=== PATIENT | female | born 1990 | race Caucasian/White ===

== ENCOUNTER 2019-02-02 21:42 | Outpatient (CLI) | payer OTHER ==
--- NOTE | 2019-02-02 23:22 | Ultrasound Report ---
Reason: SHORT CERVIX IN Procedure Date: 02/02/2019 Accession Number: [id number] / [id number] Procedure: US - OB Transvaginal CPT Code: FULL RESULT: EXAM: FOLLOW-UP OBSTETRICAL ULTRASOUND. EXAM DATE: 02/02/2019 10:29 PM. CLINICAL HISTORY: Short cervix in . COMPARISON: None. TECHNIQUE: Real-time sonographic evaluation of the fetus performed by the seed buyer. Additional transvaginal imaging to more accurately evaluate cervical length/placental position/etc. Multiple outside dealer sales representative static images were saved for review. DATING: Established EGA 22 weeks 1 day with SILVINA 06/07/2019 based on reported dates. GENERAL EVALUATION White . Cardiac activity: 142 bpm. Presentation: Variable. Placenta: Posterior position. Amniotic fluid: Normal. DANIELA 18.3 cm. MVP 5.5 cm. MATERNAL STRUCTURES The cervix is closed measuring 2.6-2.8 cm in length. IMPRESSION: 1. The cervix is closed measuring 2.6-2.8 cm in length. 2. Single, 22 week 1 day fetus in variable position. 3. heart rate 142 beats per minute. 4. DANIELA 18.3 cm. RADIA The call report notification system was initiated by Dr. Prince Oshea at 11:21 PM on 02/02/2019. The above call report findings were discussed with Dr. Guevara Florez by Dr. Prince Oshea at 11:41 PM on 02/02/2019.
== END 2019-02-02 21:43 | disposition home or self-care (01) ==
LOC: DI 21:42
PROVIDERS: ATTEND Obstetrics & Gynecology
DX: O26.879 Cervical shortening, unspecified trimester (principal); Z3A.22 22 weeks gestation of pregnancy
CPT/HCPCS: 76817

== ENCOUNTER 2019-02-16 12:54 | Outpatient (CLI) | payer OTHER ==
--- NOTE | 2019-02-16 16:09 | Ultrasound Report ---
Reason: SUPERVISION OF WITH HISTORY OF PRE TERM Procedure Date: 02/16/2019 Accession Number: [id number] / [id number] Procedure: US - OB Transvaginal CPT Code: FULL RESULT: EXAM: LIMITED OBSTETRICAL ULTRASOUND EXAM DATE: 02/16/2019 01:42 PM. CLINICAL HISTORY: SUPERVISION OF WITH HISTORY OF PRE TERM. COMPARISON: OB TRANSVAGINAL 02/02/2019 9:50 PM. TECHNIQUE: Real-time sonographic evaluation of the fetus performed by the elementary school teacher's aide. Multiple advertising sales representative static images were saved for review. Additional transvaginal imaging to more accurately evaluate cervical length/placental position/etc. DATING: Established EGA 24 weeks 1 day with SILVINA 06/07/2019. GENERAL EVALUATION White . Cardiac activity: 136 bpm. movement: Visualized. Presentation: Breech Placenta: Posterior position. Amniotic fluid: Normal. DANIELA 15.2 cm. MVP 4.6 cm. MATERNAL STRUCTURES The transvaginal maternal cervix is long and closed, 3.9 cm. IMPRESSION: 1. White live intrauterine with gestational age 24 weeks 1 day based on 06/07/2019. 2. Normal appearance of the closed cervix as described above. RADIA
== END 2019-02-16 12:55 | disposition home or self-care (01) ==
LOC: DI 12:54
PROVIDERS: ATTEND Obstetrics & Gynecology
DX: O09.212 Supervision of pregnancy with history of pre-term labor, second trimester (principal); O26.872 Cervical shortening, second trimester; Z3A.24 24 weeks gestation of pregnancy
CPT/HCPCS: 76817

== ENCOUNTER 2019-03-11 09:15 | Outpatient (CLI) | payer OTHER ==
--- NOTE | 2019-03-13 15:50 | Ultrasound Report ---
Reason: ALPHA THALASSEMIA,SUPERVISION OF WITH HI Procedure Date: 03/11/2019 Accession Number: [id number] / [id number] Procedure: US - OB F/U or Repeat CPT Code: FULL RESULT: EXAM: FOLLOW-UP OBSTETRICAL ULTRASOUND EXAM DATE: 03/11/2019 09:24 AM. CLINICAL HISTORY: ALPHA THALASSEMIA,SUPERVISION OF WITH HI. COMPARISON: OB TRANSVAGINAL 02/16/2019 1:41 PM. TECHNIQUE: Real-time sonographic evaluation of the fetus performed by the petroleum geologist. Additional transvaginal imaging to more accurately evaluate cervical length/placental position/etc. Multiple construction representative static images were saved for review. DATING: Established EGA 27 weeks 3 days with SILVINA 06/07/2019 based on provided information/physician. EGA 27 weeks 0 days with SILVINA 06/10/2019 based on the current ultrasound. GENERAL EVALUATION White . Cardiac activity: 145 bpm. movement: Visualized. Presentation: Cephalic. Placenta: Posterior, fundal position. Amniotic fluid: Normal. DANIELA 15.5 cm. MVP 4.3 cm. BIOMETRY Bi-Parietal Diameter (BPD): 6.6 cm, 26 weeks 5 days Head Circumference (HC): 24.6 cm, 26 weeks 5 days, 6.9 percentile Abdominal Circumference (AC): 22.7 cm, 27 weeks 1 day Femur Length (FL): 5.1 cm, 27 weeks 2 days Estimated Weight: 1025 152 g, 25.1 percentile for 27 weeks 3 days. ANATOMY Not evaluated MATERNAL STRUCTURES Cervix is closed measuring 3.4 cm. IMPRESSION: 1. White live intrauterine with gestational age 27 weeks 3 days based on physician provided. 2. Estimated weight is within expected limits for assigned dating. CHERYL
== END 2019-03-11 09:16 | disposition home or self-care (01) ==
LOC: DI 09:15
PROVIDERS: ATTEND Obstetrics & Gynecology
DX: O09.212 Supervision of pregnancy with history of pre-term labor, second trimester (principal); O99.012 Anemia complicating pregnancy, second trimester; D56.0 Alpha thalassemia; O26.872 Cervical shortening, second trimester; Z3A.27 27 weeks gestation of pregnancy
CPT/HCPCS: 76816; 76817

== ENCOUNTER 2019-04-05 21:17 | Outpatient (CLI) | payer OTHER ==
[2019-04-05 22:00] VITALS: BP 105/66
--- NOTE | 2019-04-06 07:14 | PROVIDER PROGRESS NOTE ---
- HPI Chief Complaint: Other (Back pain) Current : Current EDU 06/07/19 Gestation 31 Weeks and 0 Days 3 Para 2 Vital Signs Temperature 37.2 C 04/05/19 21:37 Heart Rate 85 04/05/19 21:37 Respiratory Rate 18 04/05/19 21:37 Blood Pressure 105/66 04/05/19 21:37 O2 Saturation 85 L 04/05/19 21:37 Temperature 37.2 C 04/05/19 21:37 Heart Rate 85 04/05/19 21:37 Respiratory Rate 18 04/05/19 21:37 Blood Pressure 105/66 04/05/19 21:37 O2 Saturation 85 L 04/05/19 21:37 The patient came in last night complaining of low back pain. She thought she might be having some contractions. She did have a previous delivery at 36 weeks. The patient is on weekly Rima injections. She recently had intercourse earlier today.She denies any isaías bleeding or fluid. She did have a pinkish discharge after intercourse today. - Procedures Findings: The patient was monitored. There was a category 1 EFM noted. There was good accelerations. No contractions were appreciated nursing exam revealed no change in her cervix since previous exams. - Plan Plan: 1. Intrauterine at 31 weeks gestation 2. related musculoskeletal discomfort. Plan: The patient was reassured. She will follow-up with her regular clinic visit. She knows to return to OB if her symptoms worsen or signs of labor ensue. Nursing also discussed the changes that can happen with intercourse during and the reaction of the semen to contractions in the pinkish discharge she had after intercourse.The patient was discharged home.
== END 2019-04-05 22:40 | disposition home or self-care (01) ==
LOC: WFO 21:17 → FBP 21:19 → WFO 22:40
PROVIDERS: ATTEND Obstetrics & Gynecology
DX: O99.89 Other specified diseases and conditions complicating pregnancy, childbirth and the puerperium (principal); M54.5 Low back pain; Z3A.31 31 weeks gestation of pregnancy; O09.213 Supervision of pregnancy with history of pre-term labor, third trimester; Z79.899 Other long term (current) drug therapy
CPT/HCPCS: 99213

== ENCOUNTER 2019-04-06 17:15 | Outpatient (CLI) | payer OTHER ==
[2019-04-06 17:23] VITALS: BP 113/63
[2019-04-06] MEDS ORDERED: BETAMETHASONE 30 MG/5 ML VIAL IM ONE (17:30)
[2019-04-06 18:15] LABS: RUPTURE OF MEMBRANES PLUS NEGATIVE (NEGATIVE)
--- NOTE | 2019-04-06 20:33 | PROVIDER PROGRESS NOTE ---
- HPI Chief Complaint: Labor Current : Current EDU 06/07/19 Gestation 31 Weeks and 1 Days 3 Para 2 Vital Signs Temperature 98.2 F 04/06/19 17:22 Heart Rate 79 04/06/19 17:22 Respiratory Rate 17 04/06/19 17:22 Blood Pressure 113/63 04/06/19 17:22 O2 Saturation 100 04/06/19 17:22 Temperature 98.2 F 04/06/19 17:22 Heart Rate 79 04/06/19 17:22 Respiratory Rate 17 04/06/19 17:22 Blood Pressure 113/63 04/06/19 17:22 O2 Saturation 100 04/06/19 17:22 - Procedures OB Procedure Performed: NST Diagnosis/Indication for NST: labor NST Procedure: EFM 145 mod slim 15x15 accels no decels TOCO: irritable Cat I tracing Service Date of procedure: 04/06/19 Findings: Cat I tracing Negative ROM+ BMZ 12 mg IM given x1. Repeat in 24 hours Seen in clinic. FFN, GBS, GCCT collected SVE 2/50/-2 in clinic Nitrazne neg - Plan Plan: 28 yo at 31+1 wga here for possible PTL HX of PTD at 36 wga on [place] Had been seen in triage 04/05/19 and was told to fu in clinic Had IC yesterday and felt contractons. SVE 1.5 cm in triage per pt report. Triage documents show 2.5 FFN collected in clinic Neg pooling in clinic but did have spontaneous passage of clear fluid under observation. Nitrazine neg ROM+ neg in triage BMZ given with plan to return n 24 hours for second dose GBS/GCCT/FFN pending Cat I tracing Irritable on toco Warning signs reviewed
== END 2019-04-06 18:30 | disposition home or self-care (01) ==
LOC: WFO 17:15 → FBP 17:16 → WFO 18:30
PROVIDERS: ATTEND Obstetrics & Gynecology
DX: O60.00 Preterm labor without delivery, unspecified trimester (principal); Z3A.31 31 weeks gestation of pregnancy; O09.213 Supervision of pregnancy with history of pre-term labor, third trimester; Z79.899 Other long term (current) drug therapy
CPT/HCPCS: 82731; 84112; 87491; 87591; 87661; 87797; 87801; 96372; 99214

== ENCOUNTER 2019-04-06 17:51 | Outpatient (CLI) | payer OTHER ==
[2019-04-06 21:23] LABS: TRICHOMONAS VAGINALIS DNA NEGATIVE (NEGATIVE)
[2019-04-06 22:44] LABS: CANDIDA GROUP DNA NEGATIVE (NEGATIVE); CANDIDA KRUSEI DNA NEGATIVE (NEGATIVE); TRICHOMONAS VAGINALIS DNA NEGATIVE (NEGATIVE)
== END 2019-04-06 23:59 | disposition home or self-care (01) ==
LOC: LAB.R 17:51
PROVIDERS: ATTEND Obstetrics & Gynecology
DX: O60.00 Preterm labor without delivery, unspecified trimester (principal)
CPT/HCPCS: 82731; 87491; 87591; 87661; 87797; 87801

== ENCOUNTER 2019-04-07 18:05 | Outpatient (CLI) | payer OTHER ==
[2019-04-07] MEDS ORDERED: BETAMETHASONE 30 MG/5 ML VIAL IM ONE (18:17)
[2019-04-07 19:04] LABS: GLUCOSE, URINE (UA) NEGATIVE (NEGATIVE); KETONES,URINE (UA) 15 mg/dL (NEGATIVE); LEUKOCYTE ESTERASE, URINE TRACE (NEGATIVE); NITRITE,URINE NEGATIVE (NEGATIVE); OCCULT BLOOD,URINE SMALL (NEGATIVE); PROTEIN,URINE 100 mg/dL (NEGATIVE); UROBILINOGEN,URINE 2 E.U./dL (NORMAL)
[2019-04-07 19:15] LABS: BACTERIA,URINE Few /HPF (None Seen); BILIRUBIN,URINE NEGATIVE (NEGATIVE); CLARITY,URINE CLEAR (CLEAR); ICTOTEST,URINE NEGATIVE; RBC,URINE 0-5 /HPF (0-5); SQUAMOUS EPITHELIAL CELL,UR MANY Squamous (<= Few)
[2019-04-07 19:23] LABS: RUPTURE OF MEMBRANES PLUS NEGATIVE (NEGATIVE)
[2019-04-07 19:25] VITALS: BP 109/64
[2019-04-07] MEDS ORDERED: ACETAMINOPHEN 500 MG TABLET PO SCH ×2 (19:34→20:00)
--- NOTE | 2019-04-22 04:54 | PROVIDER PROGRESS NOTE ---
- HPI Chief Complaint: Other (28 yo at 31+1 wga wth hx of PTD on 17OHP here for LOF. Small passage of fluid. No active loss. No CTX/VB. + FM) Current : Current EDU 06/07/19 Gestation 31 Weeks and 2 Days 3 Para 2 Vital Signs Temperature 98.4 F 04/07/19 18:45 Heart Rate 84 04/07/19 18:45 Respiratory Rate 18 04/07/19 18:45 Blood Pressure 109/64 04/07/19 18:45 O2 Saturation 99 04/07/19 18:45 Temperature 98.4 F 04/07/19 18:45 Heart Rate 84 04/07/19 18:45 Respiratory Rate 18 04/07/19 18:45 Blood Pressure 109/64 04/07/19 18:45 O2 Saturation 99 04/07/19 18:45 - Exam GEN: NAD ROM+ neg EFM 130 mod slim 10x10 t 15x15 accels no decels TOCO: quiet UA: UCX not indicated - Procedures NST Procedure: AGA tracing Service Date of procedure: 04/07/19 Procedure Details: AGA tracing ROM+ neg Findings: No evidence of ROM Reassing NST for EGA - Plan Plan: DC to home with warning signs Routine OB care
== END 2019-04-07 20:05 | disposition home or self-care (01) ==
LOC: WFO 18:05 → FBP 18:13 → WFO 20:05
PROVIDERS: ATTEND Obstetrics & Gynecology
DX: O09.213 Supervision of pregnancy with history of pre-term labor, third trimester (principal); Z3A.31 31 weeks gestation of pregnancy
CPT/HCPCS: 81001; 84112; 96372; 99214; A9270; 87086

== ENCOUNTER 2019-04-14 08:00 | Outpatient (CLI) | payer OTHER | END 2019-04-14 23:59 | disposition home or self-care (01) | LOC: LAB.R 08:00 | PROVIDERS: ATTEND Obstetrics & Gynecology | DX: Z87.51 Personal history of pre-term labor (principal) | CPT/HCPCS: 82731 ==

== ENCOUNTER 2019-05-07 18:28 | Outpatient (CLI) | payer OTHER ==
[2019-05-07 19:36] VITALS: BP 108/70
--- NOTE | 2019-05-07 20:25 | PROVIDER PROGRESS NOTE ---
- HPI Current : Current EDU 06/07/19 Gestation 35 Weeks and 4 Days 3 Para 2 Vital Signs Temperature 37.0 C 05/07/19 18:38 Heart Rate 89 05/07/19 18:38 Respiratory Rate 17 05/07/19 18:38 Blood Pressure 124/73 05/07/19 18:38 O2 Saturation 99 05/07/19 18:38 Temperature 36.7 C 05/07/19 19:34 Heart Rate 76 05/07/19 19:34 Respiratory Rate 16 05/07/19 19:34 Blood Pressure 108/70 05/07/19 19:34 O2 Saturation 96 05/07/19 19:34 The patient is a well-developed, well-nourished,28-year-old female who is a 3 para 2 at 35 weeks and 4 days. She noted the onset of contractions for the past 2 days. She thought that they might be getting closer together and that they were little bit stronger and so she came into labor and delivery for check. She denies any vaginal bleeding or fluid. She just did notes contractions.She did notes good movement. - Exam Abdomen: The abdomen is soft, pliable and nontender. The uterus is gravid. It is soft between irregular very mild irregular contractions. Pelvic: The fetus is not engaged in the pelvis. It is cephalic by Domo's maneuvers. The cervix is very posterior average in consistency. It is perhaps 50% effaced.I cannot extend a fingertip through the cervix beyond the external loss. The external loss is only open to a fingertip.There is a category 1 EFM noted. Good accelerations are appreciated. - Plan Plan: Impression: Intrauterine at 35 weeks and 4 days gestation contractions Plan: The patient was observed for Almost 2 hours without any appreciable cervical change.We are going to allow the patient to go home. She will call if she has any vaginal bleeding or fluid or if her contractions began to increase in intensity.As long she does well she will just keep her regular appointment scheduled for this week.
== END 2019-05-07 20:32 | disposition home or self-care (01) ==
LOC: WFO 18:28 → FBP 18:29 → WFO 20:32
PROVIDERS: ATTEND Obstetrics & Gynecology
DX: O47.03 False labor before 37 completed weeks of gestation, third trimester (principal); Z3A.35 35 weeks gestation of pregnancy
CPT/HCPCS: 99213

== ENCOUNTER 2019-05-12 12:54 | Outpatient (CLI) | payer OTHER | END 2019-05-12 23:59 | disposition home or self-care (01) | LOC: LAB.R 12:54 | PROVIDERS: ATTEND Obstetrics & Gynecology | DX: Z11.3 Encounter for screening for infections with a predominantly sexual mode of transmission (principal) | CPT/HCPCS: 87797 ==

== ENCOUNTER 2019-05-14 13:25 | Outpatient (CLI) | payer OTHER ==
[2019-05-14 14:34] LABS: RUPTURE OF MEMBRANES PLUS NEGATIVE (NEGATIVE)
[2019-05-14 14:59] VITALS: BP 105/72
--- NOTE | 2019-05-14 15:27 | PROVIDER PROGRESS NOTE ---
- HPI Chief Complaint: Leakage of vaginal fluid (Episode of loss of fluid at 1100 this AM. went to the bathroom.) Current : Current EDU 06/07/19 Gestation 36 Weeks and 4 Days 3 Para 2 Vital Signs Temperature 37.1 C 05/14/19 13:44 Heart Rate 85 05/14/19 13:44 Respiratory Rate 16 05/14/19 13:44 Blood Pressure 110/72 05/14/19 13:44 Temperature 37 C 05/14/19 14:58 Heart Rate 84 05/14/19 14:58 Respiratory Rate 16 05/14/19 14:58 Blood Pressure 105/72 05/14/19 14:58 O2 Saturation 100 05/14/19 14:08 - Exam RROM + was negative. - Procedures NST Procedure: reactive base line 130 with accelerations. Cat 1 strip Service Date of procedure: 05/14/19 Procedure Details: Pt reassured that comming in was the right thing to do. represent for SROM, Labor, FM.
== END 2019-05-14 15:30 | disposition home or self-care (01) ==
LOC: WFO 13:25 → FBP 13:27 → WFO 15:30
PROVIDERS: ATTEND Obstetrics & Gynecology
DX: O99.89 Other specified diseases and conditions complicating pregnancy, childbirth and the puerperium (principal); N89.8 Other specified noninflammatory disorders of vagina; Z3A.36 36 weeks gestation of pregnancy
CPT/HCPCS: 84112; 99213

== ENCOUNTER 2019-05-18 07:58 | Outpatient (CLI) | payer OTHER ==
[2019-05-18 08:19] VITALS: BP 110/79
--- NOTE | 2019-05-18 18:59 | PROCEDURE REPORT ---
- HPI Diagnosis/Indication for NST: labor Current EDU 06/07/19 Gestation 37 Weeks and 1 Days 3 Para 2 Vital Signs Temperature 98.6 F 05/18/19 08:16 Heart Rate 75 05/18/19 08:16 Respiratory Rate 16 05/18/19 08:16 Blood Pressure 110/79 05/18/19 08:16 O2 Saturation 99 05/18/19 08:16 Temperature 98.6 F 05/18/19 08:16 Heart Rate 75 05/18/19 08:16 Respiratory Rate 16 05/18/19 08:16 Blood Pressure 110/79 05/18/19 08:16 O2 Saturation 99 05/18/19 08:16 - NST Procedure NST Procedure Start Date 05/18/19 Start Time 08:09 Stop Time 08:31 Vibroacoustic Stimulation Used No Patient States Movement Yes EFM 145 moderate variability 15 x 15 accelerations no decelerations [place]: irritable - Results and Plan Findings/Impression: Patient is a 28-year-old G3, P2 at 37 weeks 1 day estimated gestational age here for NST complicated by history of labor on Rima Category 1 tracing; reactive and reassuring NST Continue with routine antepartum screening as determined by primary OB Warning signs reviewed Discharge to home NST was performed on 05/18/2019 NST was read on 05/08/1819
== END 2019-05-18 08:35 | disposition home or self-care (01) ==
LOC: WFO 07:58 → FBP 08:01 → WFO 08:35
PROVIDERS: ATTEND Obstetrics & Gynecology
DX: O09.213 Supervision of pregnancy with history of pre-term labor, third trimester (principal); Z3A.37 37 weeks gestation of pregnancy; O36.5930 Maternal care for other known or suspected poor fetal growth, third trimester, not applicable or unspecified
CPT/HCPCS: 59025; 76816

== ENCOUNTER 2019-05-18 09:41 | Outpatient (CLI) | payer OTHER ==
--- NOTE | 2019-05-18 15:51 | Ultrasound Report ---
Reason: SMALL FOR GESTATIONAL AGE Procedure Date: 05/18/2019 Accession Number: [id number] / [id number] Procedure: US - OB F/U or Repeat CPT Code: FULL RESULT: EXAM: FOLLOW-UP OBSTETRICAL ULTRASOUND EXAM DATE: 05/18/2019 10:32 AM. CLINICAL HISTORY: SMALL FOR GESTATIONAL AGE. COMPARISON: OB F/U OR REPEAT 05/04/2019 4:41 PM OB F/U OR REPEAT 03/11/2019 9:24 AM OB TRANSVAGINAL 02/16/2019 1:41 PM OB TRANSVAGINAL 02/02/2019 9:50 PM. TECHNIQUE: Real-time sonographic evaluation of the fetus performed by the airline station agent. Multiple high school admissions representative static images were saved for review. DATING: Established EGA 37 weeks 1 day with SILVINA 06/07/2019 based on physician stated. EGA 36 weeks 5 days with SILVINA 06/10/2019 based on prior ultrasound of 03/11/2019. EGA 36 weeks 1 day with SILVINA 06/14/2019 based on the current ultrasound. GENERAL EVALUATION White . Cardiac activity: 146 bpm. movement: Present Presentation: Cephalic. Placenta: Posterior position. Amniotic fluid: Normal. DANIELA 10.8 cm. MVP 5.9 cm. BIOMETRY Bi-Parietal Diameter (BPD): 8.9 cm, 36 weeks 0 days Head Circumference (HC): 32 cm, 36 weeks 1 day Abdominal Circumference (AC): 31.5 cm, 35 weeks 4 days Femur Length (FL): 7.2 cm, 36 weeks 6 days Estimated Weight: 2820 g, 27th percentile for 37 weeks 1 day. ANATOMY Not assessed. MATERNAL STRUCTURES Cervix not well seen. IMPRESSION: 1. White intrauterine with gestational age 37 weeks 1 day based on provided information/physician. 2. Estimated weight is within expected limits for assigned dating. 3. Normal interval growth compared to 05/04/2019. RADIA
== END 2019-05-18 09:42 | disposition home or self-care (01) ==
LOC: DI 09:41
PROVIDERS: ATTEND Obstetrics & Gynecology
DX: O36.5930 Maternal care for other known or suspected poor fetal growth, third trimester, not applicable or unspecified (principal); Z3A.37 37 weeks gestation of pregnancy
CPT/HCPCS: 76816

== ENCOUNTER 2019-06-01 07:53 | Inpatient (IN) | payer OTHER ==
[2019-06-01] MEDS ORDERED: SODIUM CHLORIDE FLUSH 0.9% 10 ML SYRINGE ONE (09:02)
[2019-06-01] MEDS ORDERED: OXYTOCIN/DEXTROSE 5 % 30 UNIT/500 ML BAG IV PRN (10:15)
[2019-06-01] MEDS ORDERED: ONDANSETRON 4 MG/2 ML VIAL IVP PRN (10:15)
[2019-06-01] MEDS ORDERED: miSOPROStol 200 MCG TABLET PR ONE (10:15)
[2019-06-01] MEDS ORDERED: fentaNYL 100 MCG/2 ML VIAL IVP PRN (10:15)
[2019-06-01] MEDS ORDERED: METOCLOPRAMIDE 10 MG/2 ML VIAL IVP PRN (10:15)
[2019-06-01] MEDS ORDERED: SODIUM CHLORIDE FLUSH 0.9% 10 ML SYRINGE IVP PRN (10:15)
[2019-06-01] MEDS ORDERED: ONDANSETRON ODT 4 MG TABLET TL PRN (10:15)
[2019-06-01] MEDS ORDERED: METOCLOPRAMIDE 10 MG TABLET PO PRN (10:15)
[2019-06-01 10:39] LABS: HGB - HEMOGLOBIN 9.5 g/dL (12.0-16.0); MEAN CORPUSCULAR HEMOGLOBIN 17.4 pg (27.0-31.0); MEAN CORPUSCULAR HGB CONC 28.4 g/dL (32.0-36.0); MEAN CORPUSCULAR VOLUME 61.2 fL (81.0-99.0); RED BLOOD COUNT 5.47 10^6/uL (4.20-5.40); RED CELL DISTRIBUTION WIDTH 25.3 % (12.0-15.0); WHITE BLOOD COUNT 11.2 x10^3/uL (4.8-10.8)
[2019-06-01] MEDS ORDERED: OXYTOCIN/DEXTROSE 5 % 30 UNIT/500 ML BAG IV ONE (10:40)
[2019-06-01] MEDS ORDERED: LACTATED RINGERS 1,000 ML IV SCH (11:00)
[2019-06-01] MEDS ORDERED: OXYTOCIN/DEXTROSE 5 % 30 UNIT/500 ML BAG IV SCH (11:00)
[2019-06-01 11:34] LABS: BASOPHILS # (AUTO) 0.1 10^3/uL (0.0-0.1); BASOPHILS % (AUTO) 0.5 %; EOSINOPHILS # (AUTO) 0.1 10^3/uL (0.0-0.7); EOSINOPHILS % (AUTO) 0.5 %; LYMPHOCYTES # (AUTO) 1.8 10^3/uL (1.5-3.5); LYMPHOCYTES % (AUTO) 16.6 %; MONOCYTES # (AUTO) 0.8 10^3/uL (0.0-1.0); MONOCYTES % (AUTO) 7.2 %; NEUTROPHILS # (AUTO) 8.3 10^3/uL (1.5-6.6); NEUTROPHILS % (AUTO) 74.5 %; PLT - PLATELET COUNT 210 10^3/uL (130-450)
[2019-06-01] MEDS ORDERED: miSOPROStol 100 MCG TABLET BC SCH (13:00)
[2019-06-01] MEDS ORDERED: SODIUM CHLORIDE FLUSH 0.9% 10 ML SYRINGE IVP SCH (17:00)
--- NOTE | 2019-06-01 21:56 | HISTORY & PHYSICAL EXAMINATION ---
Admit History - Visit Reason Visit Reason: Other (IOL) - : 3 Parity: 2 Premature: 1 Care: positive: [facility] Risk/History: positive: labor <37 weeks Smoking Status: Former smoker - Mother's Labs GBS: positive: Group B Step Negative - Other Maternal History Other Maternal History: Patient is a 28-year-old at 39 weeks 1 day estimated gestational age here for induction of labor. Has been having intermittent contractions.No loss of fluid/vaginal bleeding. Endorses movement. Was 3 cm / 60%/-2 on clinical exam. has been complicated by history of labor for which she was treated with Jimenez. Has also measured been measuring size less than dates with growth ultrasounds estimating weight to be 27th percentile. SGA with alpha thalassemia - US shows EFW 27%ile -Vertex A pos/ Rub unknown (not listed in outside records HIV neg/GCCT neg/ Juliet Imm/ Hep BsAg neg/ NILM pap 01/2018 US: Left EIF, otherwise normal FAS with posterior placenta Genetic screening: Counsyl wnl Glucola: 28 weeks- ordered. Has been reminded on several occasions to complete labs. TDaP: completed 03/17/19 Breast pump Rx given GBS neg Meds/Allgy - Allergies Allergies/Adverse Reactions: Allergies Allergy/AdvReac Type Severity Reaction Status Date / Time No Known Drug Allergies Allergy Verified 04/07/19 18:20 Review of Systems - Other Findings Other Findings: As per HPI otherwise remaining systems are negative. Physical - Abdominal Exam Contraction Frequency (min/apart): intermittent - Monitoring Heart Rate Baseline: 135 Strip Review: positive: Category I - Presentation Presentation: positive: Vertex - Vaginal Exam Membranes: positive: Membranes intact Dilation (in cm): 3 Effacement (%): 60 Station: positive: -2 Cervical Position: positive: Midposition Plan for Labor - Plan For Labor Plan for Labor: 28-year-old at 39 weeks 1 day estimated gestational age here for elective induction of labor. Induction of labor: -Cervical exam unchanged from exam in clinic. Borderline favorability -We will give 1 dose misoprostol 50 mcg BC -We will add Pitocin for augmentation after initial dose of misoprostol -Discussed the possibility of artificial rupture of membranes -Written informed consent obtained -Confirmed vertex at admit FWB: Vertex, GBS negative, EFW 27%ile -Category 1 tracing -Continuous external monitoring Pain: -Desires unmedicated delivery -Nitrous oxide available at bedside per patient request -Epidural as patient request -Fentanyl 50 mcg IV q. 20 minutes to total dose of 200 mcg in early labor. Not to be given after 7 cm dilation. Rh+ rubella nonimmune -We will need MMR after delivery Anticipate
[2019-06-02] MEDS ORDERED: LIDOCAINE 1% 50 ML MDV SUBQ ONE (01:20)
[2019-06-02] MEDS ORDERED: LIDOCAINE-MPF 1% 5 ML VIAL ONE (01:26)
[2019-06-02] MEDS ORDERED: LIDOCAINE-MPF 1% 30 ML VIAL ONE (01:26)
[2019-06-02] MEDS ORDERED: miSOPROStol 200 MCG TABLET ONE (02:10)
[2019-06-02] MEDS ORDERED: DOCUSATE SODIUM 100 MG CAPSULE PO PRN (02:22)
[2019-06-02] MEDS ORDERED: HYDROCORTISONE 1% CREAM 28 GM TUBE PR PRN (02:22)
[2019-06-02] MEDS ORDERED: SIMETHICONE CHEW 80 MG TABLET PO PRN (02:22)
[2019-06-02] MEDS ORDERED: CARBOPROST TROMETHAMINE 250 MCG/ML AMP IM PRN (02:22)
[2019-06-02] MEDS ORDERED: ONDANSETRON ODT 4 MG TABLET TL PRN (02:22)
--- NOTE | 2019-06-02 02:31 | DELIVERY NOTE ---
Delivery Note - Labor Labor: positive: Augmented by oxytocin, Induced by oxytocin - Delivery Method Delivery Method: positive: Spontaneous vaginal delivery - Cervical Ripening Method Cervical Ripening Method: positive: Misoprostil - Presentation Presentation: positive: Vertex, Compound, Other (OTILIA With compound presentation. Cord prolapsing over shoulder with delivery of head.) - Nuchal Cord Nuchal Cord: positive: None - Amniotic Fluid Description Amniotic Fluid Description: positive: Clear - Laceration Laceration: positive: 2nd degree - Suture Suture Type: positive: Vicryl Suture Size: positive: 3-0 - Delivery Outcome Delivery Outcome: positive: Livebirth - [place] : positive: Placed in direct skin contact with mother, Suctioned, Stimulated, Warmed, [place] used sex: positive: Female - Cord Cord: positive: 3 vessels - Placenta Placenta: positive: Intact - Estimated Blood Loss Estimated Blood Loss (in cc): 150 - Post Delivery Events Post Delivery Events: positive: No post delivery events - Delivery Comments (Free Text/Narrative) Delivery Comments (Free Text/Narrative): Patient is a 28-year-old G3, P2 admitted at 39 weeks 1 day estimated gestational age with SILVINA of 06/07/2019. Initial SVE was 3/60%/-2. Vertex position confirmed prior to induction. Written informed consent obtained. STAGE 1: Misoprostol 50 mcg buccal given x1. Patient began nano spontaneously and proceeded with expectant management. Pitocin was started for augmentation, meeting maximum dose of 9 milliunits/min. Spontaneous rupture of membranes occurred with passage of clear fluid. GBS negative. Anesthesia limited to nitrous oxide. No epidural. Category 1 tracing throughout stage I.Complete dilation noted at 1 AM on on 06/02/2019. STAGE II: Patient pushed well for 15 minutes to deliver a viable female in OTILIA position with compound presentation of the right lower hand. Nuchal cord was not present. However, cord prolapsed with delivery of the head. delivered shortly thereafter with left shoulder anterior. Infant was delivered to maternal abdomen. Delayed cord clamping was performed. One pulsations ceased, the cord was clamped x2 and cut. Apgars were 9 and 9. Weight pending. STAGE III: Placenta was delivered with manual expression and gentle downward traction on the umbilical cord. It was inspected and found to be intact. Inspection of the perineum showed a small second-degree midline laceration. This was anesthetized with 1% lidocaine and repaired in the usual sterile fashion in layers using 3-0 Vicryl. The lower uterine segment was somewhat boggy with retained clot. This was manually removed without entering the uterine cavity. Patient received misoprostol 600 mcg BC x1 in addition to Pitocin. Total EBL was 150 cc. Procedure was well-tolerated without complication.
[2019-06-02] MEDS: ACETAMINOPHEN 500 MG TABLET PO PRN ×3 (02:35→20:43)
[2019-06-02] MEDS: IBUPROFEN 600 MG TABLET PO PRN ×3 (02:35→17:05)
[2019-06-02] MEDS ORDERED: LACTATED RINGERS 1,000 ML IV SCH (03:00)
[2019-06-03] MEDS: IBUPROFEN 600 MG TABLET PO PRN ×2 (03:26→09:33)
[2019-06-03] MEDS: ACETAMINOPHEN 500 MG TABLET PO PRN (05:34)
[2019-06-03 08:48] VITALS: BP 100/60
[2019-06-03] MEDS ORDERED: MEASLES,MUMPS & RUBELLA VACC 0.5 ML VIAL SUBQ ONE (09:29)
--- NOTE | 2019-06-03 10:31 | PROVIDER PROGRESS NOTE ---
Subjective - Prog Note Date Prog Note Date: 06/03/19 Prog Note Time: 10:30 - Subjective Subjective: Patient is up and ambulating, tolerating p.o., voiding. Pain is well managed with minimal use of pain medications. Rest feeding is going well other than some nipple tenderness. Ready for discharge. Objective - Vital Signs/Intake & Output Vital Signs: Vital Signs x48h Temp Pulse Resp BP BP Pulse Ox 06/03/19 08:47 98.1 F 63 16 100/60 98 06/03/19 03:24 98.2 F 62 18 134/75 H 99 Intake & Output: Intake & Output 05/31/19 06/01/19 06/02/19 06/03/19 23:59 23:59 23:59 23:59 Intake Total 500 2000.0 Output Total 700 Balance 500 1300.0 - Objective General Appearance: positive: No acute distress Neck: positive: Nml inspection Respiratory: positive: No respiratory distress Cardiovascular: positive: Regular rate & rhythm Abdomen: positive: Non-tender, Other (Fundus firm below the umbilicus) Skin: positive: Color nml Neurologic/Psychiatric: positive: Oriented x3 - Lab Results Fish Bones: 06/01/19 09:20 Assessment/Plan - Problem List (1) Vaginal delivery Impression: Routine care. Meeting goals for discharge. Routine discharge instructions given. Follow-up in clinic in 6 weeks. Discharge to home
--- NOTE | 2019-06-03 10:41 | DISCHARGE SUMMARY ---
"Discharge Summary Admit Date: 06/01/19 Discharge Date: 06/03/19 Discharging Provider: Denise Carmona MD Code Status: Attempt Resuscitation - DIAGNOSES Admission Diagnoses: IUP at 39w1d ega Alpha thalassemia - HPI History of Present Illness: Patient is a 28-year-old admitted at 39 weeks 1 day estimated gestational age for induction of labor. Had been having intermittent contractions.No loss of fluid/vaginal bleeding. Endorsed movement. Was 3 cm / 60%/-2 on clinical exam. has been complicated by history of labor for which she was treated with Rima. Has also measured been measuring size less than dates with growth ultrasounds estimating weight to be 27th percentile. SGA with alpha thalassemia - US shows EFW 27%ile -Vertex A pos/ Rub unknown (not listed in outside records HIV neg/GCCT neg/ Juliet Imm/ Hep BsAg neg/ NILM pap 01/2018 US: Left EIF, otherwise normal FAS with posterior placenta Genetic screening: Counsyl wnl Glucola: 28 weeks- ordered. Has been reminded on several occasions to complete labs. TDaP: completed 03/17/19 Breast pump Rx given GBS neg - CONSULTS | PROCEDURES Procedures: Induction of labor with spontaneous vaginal delivery. - HOSPITAL COURSE Hospital Course: Patient is a 28-year-old G3, P2 admitted at 39 weeks 1 day estimated gestational age with SILVINA of 06/07/2019. Initial SVE was 3/60%/-2. Vertex position confirmed prior to induction. Written informed consent obtained. STAGE 1: Misoprostol 50 mcg buccal given x1. Patient began nano spontaneously and proceeded with expectant management. Pitocin was started for augmentation, meeting maximum dose of 9 milliunits/min. Spontaneous rupture of membranes occurred with passage of clear fluid. GBS negative. Anesthesia limited to nitrous oxide. No epidural. Category 1 tracing throughout stage I.Complete dilation noted at 1 AM on on 06/02/2019. STAGE II: Patient pushed well for 15 minutes to deliver a viable female in OTILIA position with compound presentation of the right lower hand. Nuchal cord was not present. However, cord prolapsed with delivery of the head. Infant delivered shortly thereafter with left shoulder anterior. was delivered to maternal abdomen. Delayed cord clamping was performed. One pulsations ceased, the cord was clamped x2 and cut. Apgars were 9 and 9. Weight pending. STAGE III: Placenta was delivered with manual expression and gentle downward traction on the umbilical cord. It was inspected and found to be intact. Inspection of the perineum showed a small second-degree midline laceration. This was anesthetized with 1% lidocaine and repaired in the usual sterile fash ion in layers using 3-0 Vicryl. The lower uterine segment was somewhat boggy with retained clot. This was manually removed without entering the uterine cavity. Patient received misoprostol 600 mcg BC x1 in addition to Pitocin. Total EBL was 150 cc. Procedure was well-tolerated without complication. course was uncomplicated. By day #1, she was up and amb ulating, tolerating p.o., voiding, and pain was managed with minimal use of oral pain medications. Breast-feeding was going well. She received MMR prior to discharge. - ALLERGIES Allergies/Adverse Reactions: Allergies Allergy/AdvReac Type Severity Reaction Status Date / Time pineapple Allergy Intermediate Itching Verified 06/02/19 14:10 - MEDICATIONS Home Medications Other | Comments: Declined prescription discharge medications - LABS Result Diagrams: 06/01/19 09:20 - FOLLOW UP Follow Up: FU in 6 weeks in clinic - TIME SPENT Time Spent in Discharge (Minutes): 30"
--- NOTE | 2019-06-03 11:51 | Labor Flowsheet ---
Labor Flowsheet Datetime Report Generated by CPN: 06/03/2019 11:50 Datetime: 06/03/2019 08:38 VITAL SIGNS NBP Sys/Sudha/Mean (mmHg): 100 : 60 : 69 Pulse: 68 LaborFlag: Labor Datetime: 06/02/2019 01:15 UTERINE ACTIVITY Monitor Mode: External Frequency (min): 1.5-3 Quality: Strong Duration (sec): 70-80 Pattern: Normal: <= 5 Contractions in 10 Minutes Resting Tone (Palpate): Relaxed ASSESSMENT A Monitor Mode: External US FHR Baseline Rate : 130 Variability: Minimal - Undetectable to <=5 bpm Accelerations: None Decelerations: Early Category: Category II Datetime: 06/02/2019 01:00 PAIN Pain Scale: 10 Pain Presence: Intermittent Pain Type: Contraction; Pressure Pain Location: Abdomen; Perineum Pain Relief Measures: Comfort Measures VAGINAL EXAM Dilatation (cm): 10.0 Effacement (%): 100 Exam by: Dr. Carmona Patient Position/Activity: High Fowlers Patient Care Comments: lithotomy TEACHING Instructional Method: Verbal Plan of Care: Plan of Care Discussed Labor/Induction: Pushing Methods Datetime: 06/02/2019 00:57 STAGE 2 Pushing: Urge to Push Pushing Position: Pushing with Contractions Pushing Progress: Descent with Pushing Datetime: 06/02/2019 00:55 COMMUNICATION Communication: Call/Page Placed to Provider Provider Notified (Name): Dr. Sandhyaorley Communication Comments: VE, RN requested provider at bedside d/t quick progress Datetime: 06/02/2019 00:54 Station: 1 Cervix, Consistency: Soft Datetime: 06/02/2019 00:34 MEDICATIONS Pitocin (milliunits): Increased to @ 9 Datetime: 06/02/2019 00:30 Pitocin Checklist: At Least 1 Acceleration of 15 bpm x 15 Seconds in 30 Minutes or Adequate Variabi lity; No More than 1 Late Deceleration Occurred in Past 30 Minutes; No More than 2 Variable Decelerat ions > 60 Seconds in Duration and decreasing >60 bpm in 30 minutes; No More than 5 Uterine Contractio ns in 10 Minutes for any 20 Minute Interval; Uterus Palpates Soft between Contractions Membrane Status: Ruptured Membranes Rupture Method: Spontaneous Amniotic Fluid Color: Clear Amniotic Fluid Amount: Small Datetime: 06/02/2019 00:25 Pain Management: Pain Scale/Goals; Comfort Measures Datetime: 06/02/2019 00:13 Pain Coping: Breathing Through Contractions Datetime: 06/02/2019 00:06 Monitor Interventions for UA: [place] Adjusted Datetime: 06/02/2019 00:01 Monitor Interventions for FHR: Ultrasound Adjusted Datetime: 06/01/2019 23:33 I/O Interventions: Up to BR Datetime: 06/01/2019 23:32 Vaginal Exam Comments: membranes feel intact Datetime: 06/01/2019 23:18 Pain Assessment Comments: pt giggling between contractions, nitrous effective for pt Datetime: 06/01/2019 22:53 Temperature (C): 36.6 Datetime: 06/01/2019 22:00 Comments: possible subtle early decel Datetime: 06/01/2019 21:51 Medication Comments: NITROUS ON Datetime: 06/01/2019 20:30 Contraction Comments: poor tracing d/t maternal position Datetime: 06/01/2019 19:43 MATERNAL ASSESSMENT Level of Consciousness: Fully Conscious Breath Sounds, Left: Clear and Equal Breath Sounds, Right: Clear and Equal Datetime: 06/01/2019 19:35 Respirations: 20 Datetime: 06/01/2019 19:00 PATIENT CARE Oxygen Method: Room Air Datetime: 06/01/2019 18:13 SpO2 (%): 98 Pain Goal: 9 Datetime: 06/01/2019 18:07 Hygiene: Gown Changed Datetime: 06/01/2019 17:22 Vaginal Bleeding: None Cervix, Position: Midposition Datetime: 06/01/2019 16:00 DTR's/Clonus: DTRs 2+; No Clonus Headache: Denies Nausea/Vomiting: Denies RUQ Epigastric Pain: Denies Comfort Measures: Breathing/Relaxation; Family Support
== END 2019-06-03 11:25 | disposition home or self-care (01) | DRG 807 ==
LOC: WFO 07:53 → FBP 07:57 → WFO 10:14 → FBP 10:15
PROVIDERS: ADMIT Obstetrics & Gynecology; ATTEND Obstetrics & Gynecology
PROC: 10E0XZZ Delivery of Products of Conception, External Approach (ICD-10-PCS; principal; 2019-06-02)
PROC: 0KQM0ZZ Repair Perineum Muscle, Open Approach (ICD-10-PCS; 2019-06-02)
PROC: 0UCG7ZZ Extirpation of Matter from Vagina, Via Natural or Artificial Opening (ICD-10-PCS; 2019-06-02)
DX: O99.02 Anemia complicating childbirth (principal); Z37.0 Single live birth; D56.0 Alpha thalassemia; O36.5930 Maternal care for other known or suspected poor fetal growth, third trimester, not applicable or unspecified; Z3A.39 39 weeks gestation of pregnancy; O32.6XX0 Maternal care for compound presentation, not applicable or unspecified; O69.0XX0 Labor and delivery complicated by prolapse of cord, not applicable or unspecified; O70.1 Second degree perineal laceration during delivery; Z23 Encounter for immunization; Z87.891 Personal history of nicotine dependence
CPT/HCPCS: 85025; 86762; A9270; J7120

== ENCOUNTER 2020-03-20 08:00 | Outpatient (CLI) | payer OTHER ==
[2020-03-20 16:27] LABS: BILIRUBIN,URINE NEGATIVE (NEGATIVE); GLUCOSE, URINE (UA) NEGATIVE (NEGATIVE); KETONES,URINE (UA) NEGATIVE (NEGATIVE); LEUKOCYTE ESTERASE, URINE SMALL (NEGATIVE); NITRITE,URINE POSITIVE (NEGATIVE); OCCULT BLOOD,URINE LARGE (NEGATIVE); PROTEIN,URINE 100 mg/dL (NEGATIVE); UROBILINOGEN,URINE 0.2 (NORMAL) E.U./dL (NORMAL)
[2020-03-20 16:38] LABS: CLARITY,URINE HAZY (CLEAR); RBC,URINE 0-5 /HPF (0-5); WBC CLUMPS,URINE PRESENT
[2020-03-20 16:39] LABS: BACTERIA,URINE Rare /HPF (None Seen); SQUAMOUS EPITHELIAL CELL,UR FEW Squamous (<= Few)
[2020-03-20 20:45] LABS: TRICHOMONAS VAGINALIS DNA NEGATIVE (NEGATIVE)
== END 2020-03-20 08:01 | disposition home or self-care (01) ==
LOC: LAB.R 08:00
PROVIDERS: ATTEND Advanced Practice Midwife
DX: N30.00 Acute cystitis without hematuria (principal)
CPT/HCPCS: 81001; 87086; 87181; 87491; 87591; 87661

== ENCOUNTER 2020-08-02 08:00 | Outpatient (CLI) | payer OTHER | END 2020-08-02 23:59 | disposition home or self-care (01) | LOC: LAB.R 08:00 | PROVIDERS: ATTEND Obstetrics & Gynecology | DX: N30.00 Acute cystitis without hematuria (principal) | CPT/HCPCS: 87086; 87181 ==

== ENCOUNTER 2021-09-22 08:00 | Outpatient (CLI) | payer OTHER ==
[2021-09-22 16:20] LABS: BILIRUBIN,URINE NEGATIVE (NEGATIVE); GLUCOSE, URINE (UA) NEGATIVE (NEGATIVE); KETONES,URINE (UA) NEGATIVE (NEGATIVE); LEUKOCYTE ESTERASE, URINE NEGATIVE (NEGATIVE); NITRITE,URINE NEGATIVE (NEGATIVE); OCCULT BLOOD,URINE TRACE-INTA (NEGATIVE); PROTEIN,URINE NEGATIVE (NEGATIVE); UROBILINOGEN,URINE 0.2 (NORMAL) E.U./dL (NORMAL)
[2021-09-22 16:30] LABS: BACTERIA,URINE Rare /HPF (None Seen); CLARITY,URINE CLEAR (CLEAR); RBC,URINE None Seen /HPF (0-5); SQUAMOUS EPITHELIAL CELL,UR RARE Squamous (<= Few); WBC,URINE 0-3 /HPF (0-5)
== END 2021-09-22 23:59 ==
LOC: LAB 08:00
PROVIDERS: ATTEND Obstetrics & Gynecology
DX: R30.9 Painful micturition, unspecified (principal)
CPT/HCPCS: 81001; 87086

== ENCOUNTER 2021-09-23 04:55 | Emergency (ER) | payer OTHER ==
[2021-09-23 05:22] VITALS: BP 119/80
[2021-09-23 05:25] LABS: BILIRUBIN,URINE NEGATIVE (NEGATIVE); GLUCOSE, URINE (UA) NEGATIVE (NEGATIVE); KETONES,URINE (UA) NEGATIVE (NEGATIVE); LEUKOCYTE ESTERASE, URINE SMALL (NEGATIVE); NITRITE,URINE NEGATIVE (NEGATIVE); OCCULT BLOOD,URINE LARGE (NEGATIVE); PROTEIN,URINE NEGATIVE (NEGATIVE); UROBILINOGEN,URINE 0.2 (NORMAL) E.U./dL (NORMAL)
[2021-09-23 05:42] LABS: CLARITY,URINE CLEAR (CLEAR); HCG UR QUAL NEGATIVE
[2021-09-23 05:43] LABS: BACTERIA,URINE Rare /HPF (None Seen); SQUAMOUS EPITHELIAL CELL,UR RARE Squamous (<= Few)
[2021-09-23] MEDS ORDERED: HYDROcod/ACET 5/325 Prepack 4 PO STA (05:54)
--- NOTE | 2021-09-23 05:58 | ED Physician Documentation ---
PD HPI FEMALE - Stated complaint Stated Complaint: FEMALE , BACK PAIN - Chief complaint Chief Complaint: Abd Pain - History obtained from History obtained from: Patient - Additional information Additional information: Starting yesterday she has had suprapubic pain, hematuria and now worsening frequency and dysuria with low back pain without flank pain. No fevers. She had nausea but that is better now and declines meds for that. Review of Systems Constitutional: denies: Fever, Chills GI: reports: Nausea. denies: Vomiting, Constipation, Diarrhea : reports: Dysuria, Frequency, Hematuria PD PAST MEDICAL HISTORY - Past Medical History Past Medical History: Yes Cardiovascular: None Respiratory: None Neuro: None Endocrine/Autoimmune: None GI: None CYCLE TOURING GUIDE: None : None HEENT: None Psych: None Musculoskeletal: None Derm: None - Past Surgical History Past Surgical History: Yes /CYCLE TOURING GUIDE: Breast implants - Present Medications Home Medications: Ambulatory Orders Medication Instructions Recorded Confirmed Cefdinir 300 mg PO BID #14 cap 09/23/21 HYDROcod/ACETAM 5/325 [Sobieski 5/325] 1 - 2 tab PO Q6H PRN #7 tablet 09/23/21 - Allergies Allergies/Adverse Reactions: Allergies Allergy/AdvReac Type Severity Reaction Status Date / Time pineapple Allergy Intermediate Itching Verified 09/23/21 04:58 - Social History Does the pt smoke?: No Smoking Status: Former smoker Does the pt drink ETOH?: No Does the pt have substance abuse?: No - Immunizations Immunizations are current?: Yes PD ED PE NORMAL - Vitals Vital signs reviewed: Yes - General General: Alert and oriented X 3, No acute distress - Abdomen Abdomen: Non tender, Non distended - Back Back: No CVA TTP - Neuro Neuro: Alert and oriented X 3, Normal speech Results - Vitals Vitals: Vital Signs - 24 hr 09/23/21 09/23/21 05:00 05:21 Temperature 36.4 C L Heart Rate 93 76 Respiratory 18 18 Rate Blood Pressure 120/77 119/80 O2 Saturation 97 97 Oxygen O2 Source Room air - Labs Labs: Laboratory Tests 09/23/21 05:15 Urine Color YELLOW Urine Clarity CLEAR Urine pH 6.0 Ur Specific [place] <=1.005 Urine Protein NEGATIVE Urine Glucose (UA) NEGATIVE Urine Ketones NEGATIVE Urine Occult Blood LARGE H Urine Nitrite NEGATIVE Urine Bilirubin NEGATIVE Urine Urobilinogen 0.2 (NORMAL) Ur Leukocyte Esterase SMALL H Urine RBC 11-25 H Urine WBC 11-25 H Ur Squamous Epith Cells RARE Squamous Urine Bacteria Rare Ur Microscopic Review INDICATED Urine Culture Comments INDICATED Urine HCG, Qual NEGATIVE Departure - Departure Disposition: 01 Home, Self Care Clinical Impression: Cystitis Condition: Good Record reviewed to determine appropriate education?: Yes Instructions: ED UTI Cystitis Female Prescriptions: Cefdinir 300 mg PO BID #14 cap HYDROcod/ACETAM 5/325 [Sobieski 5/325] 1 - 2 tab PO Q6H PRN #7 tablet PRN Reason: Pain Comments: [facility] [place] We will culture your urine, the results should be done in 48-72 hours. If an antibiotic change is necessary we will call you. Return if worse in the meantime, especially if you develop increasing flank pain, fevers, or cannot keep down the medication.
== END 2021-09-23 06:20 | disposition home or self-care (01) ==
LOC: ED 04:55
DX: N30.91 Cystitis, unspecified with hematuria (principal); Z87.891 Personal history of nicotine dependence
CPT/HCPCS: 81001; 81025; 87086; 99283; A9270; 81003

== ENCOUNTER 2021-10-22 08:00 | Outpatient (CLI) | payer OTHER ==
[2021-10-22 20:16] LABS: BACTERIAL VAGINOSIS DNA POSITIVE (NEGATIVE); CANDIDA GLABRATA DNA NEGATIVE (NEGATIVE); CANDIDA GROUP DNA NEGATIVE (NEGATIVE); CANDIDA KRUSEI DNA NEGATIVE (NEGATIVE); TRICHOMONAS VAGINALIS DNA NEGATIVE (NEGATIVE)
[2021-10-22 21:10] LABS: CHLAMYDIA TRACHOMATIS DNA NEGATIVE (NEGATIVE); NEISSERIA GONORRHOEAE DNA NEGATIVE (NEGATIVE); TRICHOMONAS VAGINALIS DNA NEGATIVE (NEGATIVE)
== END 2021-10-22 23:59 | disposition home or self-care (01) ==
LOC: LAB 08:00
PROVIDERS: ATTEND Nurse Practitioner Obstetrics & Gynecology
DX: N89.8 Other specified noninflammatory disorders of vagina (principal)
CPT/HCPCS: 87491; 87591; 87661; 87801